=== PATIENT | male | born 1960 | race Caucasian/White ===

== ENCOUNTER 2016-08-02 11:45 | Emergency (ER) | payer OTHER ==
[~2016-08-02] VITALS: Ht 170.2 cm; Wt 88.9 kg
[2016-08-02 11:48] VITALS: BP 152/92
[2016-08-02] MEDS ORDERED: ASPI-496 PO (12:07)
== END 2016-08-02 12:55 | disposition home or self-care (01) ==
LOC: ED 12:49
DX: S16.1XXA Strain of muscle, fascia and tendon at neck level, initial encounter (principal); V43.51XA Car driver injured in collision with sport utility vehicle in traffic accident, initial encounter; Y93.89 Activity, other specified; Y92.488 Other paved roadways as the place of occurrence of the external cause; Y99.8 Other external cause status
CPT/HCPCS: 99283

== ENCOUNTER → 2018-08-09 | Outpatient (CLI) | payer OTHER ==
[~2018-08-09] MED LIST: ASPI-496 PO
== END | disposition home or self-care (01) ==
LOC: RAD 12:01
PROVIDERS: ATTEND Otolaryngology
DX: R07.9 Chest pain, unspecified (principal); R05 Cough
CPT/HCPCS: 71046

== ENCOUNTER 2019-01-30 13:44 | Emergency (ER) | payer OTHER ==
[~2019-01-30] VITALS: Ht 170.2 cm; Wt 92.9 kg
[2019-01-30 13:59] VITALS: BP 141/92
[2019-01-30] MEDS ORDERED: LIDOCAINE-MPF 1%, 5ML ONE (14:14)
[2019-01-30] MEDS ORDERED: DIPH,PERTUSS(ACELL),TET VAC/PF 0.5 ML IM-VACC ONE ×2 (14:27→15:00)
[2019-01-30] MEDS ORDERED: NEOSPORIN OINT. PKT 1 PACKET ONE (14:47)
[2019-01-30] MEDS ORDERED: LIDOCAINE-MPF 1%, 5ML INFIL ONE (15:00)
== END 2019-01-30 15:05 | disposition home or self-care (01) ==
LOC: ED 14:40
DX: S51.812A Laceration without foreign body of left forearm, initial encounter (principal); W45.8XXA Other foreign body or object entering through skin, initial encounter; Y93.89 Activity, other specified; Y92.89 Other specified places as the place of occurrence of the external cause; Y99.8 Other external cause status
CPT/HCPCS: 12001; 90471; 90715